=== PATIENT | male | born 1945 | race Asian ===

== ENCOUNTER 2018-08-09 23:31 | Inpatient (IN) | payer OTHER ==
[~2018-08-09] VITALS: Ht 167.6 cm; Wt 83.9 kg
[2018-08-09 23:30] VITALS: BP 166/100
--- NOTE | 2018-08-09 23:30 | NUR ---
PATIENT ARRIVED BY AMBULANCE FOR SOB ON CPAP. PT STATED HE HAS HX- CABGx3, PACEMAKER, BLOOD THINNERS AND DIURETICS. PT PLACED ON BIPAP 12/6 FIO2 100% BS-CRACKLES, COARSE. ABG OBTAINED AND RESULT GIVEN TO DR. KHAN, . AT 2350 DECREASED FIO2 TO 80%
--- NOTE | 2018-08-09 23:31 | NUR ---
PT JERARDO ALS. TAKEN TO BED 10
--- NOTE | 2018-08-09 23:31 | NUR ---
72 y/o biba with c/o SOB for 2-3 hours. C-PAP in place. PHM of CABG, CHF, and DM2. Takes water pills at home. Pt was tachycardic and hypertensive. Skin cold and clammy. Rales to bilateral upper lobes. Urinated at bedside, blood in urine. Per pt has lasted a week. Bedrails up x2 for safety. notified. Will continue to monitor.
--- NOTE | 2018-08-09 23:31 | NUR ---
Respiratory Therapist at bedside for respiratory intervention.
[2018-08-09] MEDS ORDERED: FUROSEMIDE 40 MG/4 ML VIAL IVP ONE (23:35)
[2018-08-09] MEDS ORDERED: NITROGLYCERIN 2% 1 GM PKT TP ONE (23:35)
[2018-08-09 23:36] VITALS: BP 192/126
[2018-08-09] MEDS ORDERED: TAMS0.4C96 PO (23:44)
[2018-08-09] MEDS ORDERED: GLIP5TER PO (23:44)
[2018-08-09] MEDS ORDERED: ASPI-1718 PO (23:44)
[2018-08-09] MEDS ORDERED: CARV3.12 PO (23:44)
[2018-08-09] MEDS ORDERED: AMIO200T5 PO (23:44)
[2018-08-09] MEDS ORDERED: LOSA25TA43 PO (23:44)
[2018-08-09 23:50] LABS: BASOPHILS % (AUTO) 0.3 % (0.0-2.0); EOSINOPHILS # (AUTO) 0.5 K/uL (0-0.4); EOSINOPHILS % (AUTO) 4.3 % (0.0-4.0); HEMATOCRIT 50.7 % (36-52); HEMOGLOBIN 16.8 g/dL (12.0-18.0); LYMPHOCYTES % (AUTO) 37.4 % (20.5-51.1); MEAN CORPUSCULAR HEMOGLOBIN 29 pg (27-31); MEAN CORPUSCULAR HGB CONC 33 g/dL (33-37); MONOCYTES # (AUTO) 1.1 K/uL (0.8-1.0); MONOCYTES % (AUTO) 10.3 % (1.7-9.3); NEUTROPHILS # (AUTO) 5.2 K/uL (1.8-7.7); NEUTROPHILS % (AUTO) 47.7 % (42.2-75.2); PLATELET COUNT (AUTO) 215 K/uL (140-450); RED BLOOD CELL COUNT(AUTO) 5.83 MIL/uL (4.20-6.10); RED CELL DISTRIBUTION WIDTH 14.5 % (11.6-13.7); WHITE BLOOD COUNT (AUTO) 10.8 K/uL (4.8-10.8)
[2018-08-09 23:59] LABS: BILIRUBIN,URINE 1+ (NEGATIVE); BLOOD, URINE 3+ (NEGATIVE); LEUKOCYTE ESTERASE ,URINE 1+ (NEGATIVE); NITRITE, URINE POSITIVE (NEGATIVE); PH,URINE 5.5 (5.0-9.0); UGLUCOSE NEGATIVE (NEGATIVE)
[2018-08-10] VITALS (8 sets, daily range): BP systolic 85–131; BP diastolic 52–90
[2018-08-10 00:05] LABS: ANION GAP 13.4 (8-16); CARBON DIOXIDE 26.9 mmol/L (21-32); CHLORIDE 104 mmol/L (98-107); CREATININE 1.8 mg/dL (0.7-1.3); GLUCOSE 155 mg/dL (74-106); POTASSIUM 3.3 mmol/L (3.5-5.1); SODIUM SERUM 141 mmol/L (136-145); UREA NITROGEN, BLOOD 21 mg/dL (7-18)
[2018-08-10 00:13] LABS: ASPARTATE AMINOTRANSFERASE 69 U/L (15-37); TOTAL BILIRUBIN 0.5 mg/dL (0.0-1.0)
[2018-08-10 00:13] LABS: APPEARANCE,URINE BLOODY (CLEAR); COLOR,URINE BLOODY (YELLOW)
[2018-08-10 00:15] LABS: RBC,URINE TOO NUMEROUS TO COUN /HPF (0-5); WBC,URINE 20-60 /HPF (0-5)
--- NOTE | 2018-08-10 00:21 | NUR ---
Critical lactic acid of 3.0. MD notified.
--- NOTE | 2018-08-10 00:30 | NUR ---
seen at bedside. Urinated, hematuria noted.
--- NOTE | 2018-08-10 00:40 | NUR ---
Blood pressure trending down, currently 134/90. Per Pt " feeling a little bit better". Skin warm to touch. at bedside.
[2018-08-10] MEDS ORDERED: cefTRIAXone 1,000 MG VIAL ONE (00:55)
[2018-08-10] MEDS ORDERED: NACL 0.9% 1,000 ML IV SCH (03:11)
[2018-08-10] MEDS ORDERED: DOCUSATE SODIUM 100 MG GELCAP PO PRN (03:15)
[2018-08-10] MEDS ORDERED: ACETAMINOPHEN 325 MG TAB PO PRN (03:15)
[2018-08-10] MEDS ORDERED: ONDANSETRON 4 MG/2 ML VIAL IM/IVP PRN (03:15)
[2018-08-10] MEDS ORDERED: ALBUTEROL SULFATE/IPRATROPIU 3 ML SOL IH PRN (03:15)
[2018-08-10] MEDS ORDERED: HYDROcodone/APAP 7.5/325 MG 1 TAB PO PRN (03:15)
[2018-08-10] MEDS ORDERED: MORPHINE SULFATE 2 MG/ML SYR IVP PRN (03:15)
--- NOTE | 2018-08-10 03:45 | NUR ---
RT transitioned Pt from C-Pap to simple mask at 6L. Tolerated well, O2 at 97%.
--- NOTE | 2018-08-10 03:47 | NUR ---
DECREASED FIO2 TO 50%, SAO2-98%
[2018-08-10 03:50] LABS: BARBITURATE, URINE NEG. ng/ml (NEG <=200); BENZODIAZEPINE, URINE NEG. ng/mL (NEG <=200); CANNABINOID, URINE NEG. ng/mL (NEG <=50); COCAINE, URINE NEG. ng/mL (NEG <=300); OPIATE, URINE NEG. ng/mL (NEG <=2000); PHENCYCLIDINE SCREEN,URINE NEG. ng/mL (NEG <=25)
[2018-08-10 03:55] LABS: PROTHROMBIN TIME 9.6 secs (10.8-13.4)
--- NOTE | 2018-08-10 03:55 | NUR ---
Patient will be admitted to care of MD Fernie . Admited to ICU. Will go to room 5. Belongings list completed. Report to ROMARIO Murcia. VSS.
--- NOTE | 2018-08-10 03:55 | NUR ---
Pt report given to ROMARIO Murcia. Transfer of care at this time. VSS.
[2018-08-10] MEDS ORDERED: DEXTROSE 50% 50 ML SYR IVP PRN (04:00)
--- NOTE | 2018-08-10 04:00 | NUR ---
PT ARRIVED IN THE UNIT AT 0355 TRANSPORTED VIA [facility]. PT WAS ABLE TO TRANSFER SELF FROM GURNEY TO BED WITH ASSISTANCE, BUT DID NOT AMBULATE. PT AWAKE, ALERT AND ORIENTED. ABLE TO MAKE NEEDS KNOWN. DENIES ANY PAIN AT THIS TIME. AFEBRILE. PT'S ONLY COMPLAINT WAS FEELING COLD. LUNG SOUNDS CLEAR. PT WAS MOVED FROM OXYGEN MASK TO BIPAP. RT AT BEDSIDE. PT DENIES ANY DIFFICULTY BREATHING AT THIS TIME. RESPIRATIONS ARE EVEN AND UNLABORED. S1+S2 HEARD. SR WITH BBB ON MONITOR. PULSES ARE PALPABLE IN ALL EXTREMITIES. ABDOMEN ROUND, SOFT AND NONDISTENDED. BS ACTIVE IN ALL QUADRANTS. PER PT, LAST BM WAS 08/09/18. PT ABLE TO MOVE EXTREMITIES WITH EQUAL STRENGTH BILATERALLY. RECEIVED PT WITH PERIPHERAL IV ACCESS ON RIGHT AC 20G AND LEFT HAND 20G. LINES ARE PATENT, INTACT, AND ASYMPTOMATIC. CALL LIGHT WITHIN REACH AND ALL SAFETY PRECAUTIONS ARE IN PLACE. PT'S DIEGO AT BEDSIDE. WILL CONTINUE TO MONITOR PT.
[2018-08-10] MEDS ORDERED: KCL 20 MEQ/WATER INJ PREMIX 100 ML IV ONE ×2 (04:05→05:09)
--- NOTE | 2018-08-10 04:05 | NUR ---
PATIENT TRANSFERRED TO ICU BED 5 VIA SIMPLE MASK AT 10LPM AND THEN PLACED BACK ON BIPAP / RATE-14 FIO2-50%
[2018-08-10 04:08] LABS: CHOL/HDL RATIO 2.8 (1-4.5); PHOSPHORUS 3.4 mg/dL (2.5-4.9); THYROID STIMULATING HORMONE 9.05 uIU/mL (0.34-3.74)
[2018-08-10] MEDS ORDERED: CLINDAMYCIN 600 MG in DEXTROSE 5% 50 ML IV SCH (05:00)
[2018-08-10] MEDS ORDERED: CLINDAMYCIN 600 MG/4 ML VIAL ONE (05:50)
[2018-08-10 06:02] LABS: ANION GAP 16.5 (8-16); CARBON DIOXIDE 22.2 mmol/L (21-32); CHLORIDE 107 mmol/L (98-107); CREATININE 1.9 mg/dL (0.7-1.3); GLUCOSE 173 mg/dL (74-106); POTASSIUM 3.7 mmol/L (3.5-5.1); SODIUM SERUM 142 mmol/L (136-145); UREA NITROGEN, BLOOD 24 mg/dL (7-18)
[2018-08-10 06:05] LABS: MAGNESIUM 1.6 mg/dL (1.8-2.4); PHOSPHORUS 2.9 mg/dL (2.5-4.9)
--- NOTE | 2018-08-10 06:29 | NUR ---
CALLED DR. QUEEN TO SUGGEST IF POSSIBLE TO ORDER POTASSIUM WITH LIDOCAINE DUE TO PT ONLY HAVING PERIPHERAL IV ACCESS. DR. QUEEN AGREED AND WILL CHANGE ORDER.
[2018-08-10] MEDS ORDERED: POTASSIUM CHLORIDE 40 MEQ, LIDOCAINE MPF 1% - 5 mL VIAL 25 MG in NACL 0.9% 250 ML IV SCH (06:30)
[2018-08-10 06:33] LABS: BASOPHILS % (AUTO) 0.2 % (0.0-2.0); EOSINOPHILS % (AUTO) 0.1 % (0.0-4.0); HEMATOCRIT 49.6 % (36-52); HEMOGLOBIN 16.2 g/dL (12.0-18.0); LYMPHOCYTES % (AUTO) 7.1 % (20.5-51.1); MEAN CORPUSCULAR HEMOGLOBIN 28 pg (27-31); MEAN CORPUSCULAR HGB CONC 33 g/dL (33-37); MEAN CORPUSCULAR VOLUME 86.9 fL (80-94); MONOCYTES % (AUTO) 7.2 % (1.7-9.3); NEUTROPHILS # (AUTO) 11.5 K/uL (1.8-7.7); NEUTROPHILS % (AUTO) 85.4 % (42.2-75.2); PLATELET COUNT (AUTO) 167 K/uL (140-450); RED CELL DISTRIBUTION WIDTH 14.2 % (11.6-13.7); WHITE BLOOD COUNT (AUTO) 13.5 K/uL (4.8-10.8)
[2018-08-10] MEDS ORDERED: methylPREDNISolone SS 125 MG/2 ML VIAL IVP SCH (06:40)
[2018-08-10] MEDS: BLOOD GLUCOSE MONITORING 1 DEV DEV FS SCH ×4 (06:51→20:30)
--- NOTE | 2018-08-10 07:09 | NUR ---
CALLED DR. QUEEN AGAIN TO INFORM HIM REGARDING CURRENT BMP RESULT. POTASSIUM LEVEL NORMALIZED WITHOUT GIVING K-RIDER. REPORTED LOW MAGNESIUM LEVEL.
[2018-08-10] MEDS ORDERED: MAGNESIUM OXIDE 400 MG TAB PO SCH ×2 (07:10→08:35)
[2018-08-10] MEDS: ALBUTEROL SULFATE/IPRATROPIU 3 ML SOL IH SCH ×3 (07:26→19:17)
--- NOTE | 2018-08-10 07:36 | NUR ---
RECEIVED PATIENT ON BIPAP ON DOCUMENTED NIPPV SETTINGS. PATIENT TOLERATING BIPAP WELL. SCHEDULED BREATHING TREATMENT ADMINISTERED. TOLERATED TX WELL, NO ADVERSE SIDE EFFECTS. NO DISTRESS NOTED WILL CONTINUE TO MONITOR.
--- NOTE | 2018-08-10 07:38 | NUR ---
PLACED PATIENT ON 4L NASAL CANNULA. WILL TITRATE TO MAINTAIN SpO2 >92%. NO DISTRESS NOTED WILL CONTINUE TO MONITOR.
--- NOTE | 2018-08-10 07:49 | NUR ---
PT ASSISTED TO BE REPOSITIONED FOR BREAKFAST AND OFF BIPAP BY RT AND ON O2 4L VIA NC. PT SATING WELL AND DENIES ANY PAIN OR DISCOMFORT. INSULIN ADMINISTERED ORDERED. A&O X4. VERBALLY RESPONSIVE. ABLE TO MOVE ALL EXTREMITIES. RIGHT AC AND HAND #20 PATENT AND ASYMPTOTIC. BOWEL SOUNDS ACTIVE. SR ON MONITOR. CAP REFILL WITHIN 3 SEC. LUNG SOUNDS CLEAR. USES URINAL. DR. ENCARNACION AND RESIDENTS CAME TO SEE THE RESIDENT. Addendum: 08/10/18 at 1105 by Charley Waters RN DR. ENCARNACION AND RESIDENTS CAME TO SEE THE PT.
[2018-08-10] MEDS: AMIODARONE 200 MG TAB PO SCH (08:09)
[2018-08-10] MEDS: CARVEDILOL 3.125 MG TAB PO SCH ×2 (08:09→20:32)
[2018-08-10] MEDS: LACTOBACILLUS RHAMNOSUS GG 1 EACH CAP PO SCH (08:09)
[2018-08-10] MEDS: TAMSULOSIN 0.4 MG CAP PO SCH (08:09)
[2018-08-10] MEDS: ASPIRIN 81 MG TAB.CHEW PO SCH (08:10)
[2018-08-10] MEDS: glipiZIDE ER 5 MG TABER PO SCH (08:19)
--- NOTE | 2018-08-10 08:30 | NUR ---
ASSISTED WITH MORNING CARE. TOLERATED WELL.
--- NOTE | 2018-08-10 08:30 | NUR ---
RENAL ULTRA SOUND BEING PERFORMED AT BED SIDE.
--- NOTE | 2018-08-10 08:45 | NUR ---
50% BREAKFAST CONSUMED. PT UNABLE TO FEED HIMSELF AT THIS TIME STATING THAT HE FEELS WEAK. ASSISTED PT WITH FEEDING.
[2018-08-10] MEDS ORDERED: LOSARTAN 25 MG TAB PO SCH (09:00)
--- NOTE | 2018-08-10 09:35 | NUR ---
DR. MAJOR IN TO SEE RESIDENT. ORDER RECEIVED. WILL CARRY OUT.
--- NOTE | 2018-08-10 10:00 | NUR ---
CRITICAL LAB RESULT RECEIVED. LACTIC ACID=3.3. REPORTED TO DR. MAJOR. ORDER RECEIVED AND WILL CARRY OUT.
[2018-08-10] MEDS: NACL 0.9% 1,000 ML IV SCH ×2 (10:15→21:43)
--- NOTE | 2018-08-10 10:25 | NUR ---
DR. SHAVER IN TO SEE PT.
--- NOTE | 2018-08-10 11:03 | NUR ---
ASSISTED WITH REPOSITIONING FOR COMFORT. DENIES PAIN OR DISCOMFORT. VSS. CALL LIGHT IN REACH. BED KEPT TO THE LOWEST. ALL NEEDS ARE ANTICIPATED. WILL CONTINUE TO MONITOR.
[2018-08-10] MEDS: INSULIN LISPRO SLIDING SCALE 100 UNITS/ML VIAL SUBQ PRN ×3 (11:32→20:32)
[2018-08-10] MEDS: CLINDAMYCIN PHOS 600MG/D5W PM 50 ML IV SCH ×2 (12:46→20:31)
[2018-08-10] MEDS: methylPREDNISolone SS 125 MG/2 ML VIAL IVP SCH ×2 (12:47→20:31)
[2018-08-10] MEDS ORDERED: CLINDAMYCIN PHOS 600MG/D5W PM 50 ML IV SCH (13:00)
--- NOTE | 2018-08-10 13:00 | NUR ---
50% LUNCH CONSUMED. LIMITED ASSISTANCE PROVIDED.
--- NOTE | 2018-08-10 14:10 | NUR ---
SCHEDULED BREATHING TREATMENT ADMINISTERED. TOLERATED TX WELL, NO ADVERSE SIDE EFFECTS. WILL CONTINUE TO MONITOR.
--- NOTE | 2018-08-10 14:45 | NUR ---
Critical lab result Lactic acid=4.[address] Gooden. Doctor will see the pt.
[2018-08-10] MEDS ORDERED: NACL 0.9% 500 ML IV ONE (14:50)
--- NOTE | 2018-08-10 14:55 | NUR ---
Dr. Gooden in to see pt. Ordered NS bolus 500ml. Noted and carried out.
[2018-08-10 15:21] LABS: BASOPHILS % (AUTO) 0.1 % (0.0-2.0); HEMOGLOBIN 14.2 g/dL (12.0-18.0); LYMPHOCYTES # (AUTO) 0.6 K/uL (2.0-11.5); LYMPHOCYTES % (AUTO) 6.6 % (20.5-51.1); MEAN CORPUSCULAR HEMOGLOBIN 29 pg (27-31); MEAN CORPUSCULAR HGB CONC 33 g/dL (33-37); MEAN CORPUSCULAR VOLUME 86.3 fL (80-94); MONOCYTES # (AUTO) 0.1 K/uL (0.8-1.0); MONOCYTES % (AUTO) 0.8 % (1.7-9.3); NEUTROPHILS # (AUTO) 8.6 K/uL (1.8-7.7); NEUTROPHILS % (AUTO) 92.5 % (42.2-75.2); PLATELET COUNT (AUTO) 150 K/uL (140-450); RED BLOOD CELL COUNT(AUTO) 4.99 MIL/uL (4.20-6.10); WHITE BLOOD COUNT (AUTO) 9.3 K/uL (4.8-10.8)
[2018-08-10 15:34] LABS: ANION GAP 16.8 (8-16); CARBON DIOXIDE 19.8 mmol/L (21-32); CHLORIDE 106 mmol/L (98-107); CREATININE 2.2 mg/dL (0.7-1.3); GLUCOSE 223 mg/dL (74-106); POTASSIUM 3.6 mmol/L (3.5-5.1); SODIUM SERUM 139 mmol/L (136-145); UREA NITROGEN, BLOOD 26 mg/dL (7-18)
--- NOTE | 2018-08-10 15:35 | NUR ---
NS BOLUS COMPLETED. BP=85/55. DR. MAJOR MADE AWARE. PT IS ALERT X 4 AND NO CHANGE IS MENTATION NOTED. PT DENIES ANY PAIN OR DISCOMFORT. ASSISTED WITH REPOSITION FOR COMFORT. WILL CONTINUE TO MONITOR.
[2018-08-10] MEDS ORDERED: PROBIOTIC SCREEN 1 EA MISC MC PRN (16:15)
--- NOTE | 2018-08-10 16:45 | NUR ---
ASSISTED WITH BED BATH. TOLERATED WELL. DENIES ANY DISCOMFORT. VSS. WILL CONTINUE TO MONITOR.
--- NOTE | 2018-08-10 18:02 | NUR ---
PT ATE 70% OF DINNER. SET UP ASSISTANCE PROVIDED.
--- NOTE | 2018-08-10 19:10 | NUR ---
DR. Sue REDDY AT BEDSIDE. UPDATED HIM REGARDING PT'S CONDITION. WILL FOLLOW-UP WITH ANY NEW ORDERS.
--- NOTE | 2018-08-10 19:22 | NUR ---
REPORT GIVEN TO NOC NURSE. PT VSS AND DENIES PAIN OR DISCOMFORT. ALL PRECAUTIONS ARE IN PLACE.
--- NOTE | 2018-08-10 19:30 | NUR ---
RECEIVED REPORT FROM MORNING RN, THERESA, FOR CONTINUITY OF CARE. VS STABLE AT THIS TIME. AFEBRILE. PT ABLE TO MAKE NEEDS KNOWN AND FOLLOW COMMANDS. PT DENIES ANY PAIN OR DISCOMFORT AT THIS TIME. PT MAKING CONVERSATION WITH STAFF. SKIN IS WARM TO TOUCH. LUNG SOUNDS CLEAR. PT ON OXYGEN AT 4L/MIN VIA NC. NO SOB NOTED. RESPIRATIONS ARE EVEN AND UNLABORED. OXYGEN SATURATION WNL. S1+S2 HEARD. SR ON MONITOR. PULSES ARE PALPABLE IN ALL EXTREMITIES. NO JVD NOTED. ABDOMEN ROUND, SOFT AND NONDISTENDED. BS ACTIVE IN ALL QUADRANTS. PT ABLE TO REPOSITION SELF IN BED. USES URINAL. NS RATE CHANGED TO 20ML/HR. PT HAS PERIPHERAL IV ACCESS ON RIGHT AC 20G AND LEFT HAND 20G. ALL IV ACCESS STILL HAS GOOD BLOOD RETURN. ALL SAFETY PRECAUTIONS ARE IN PLACE. WILL CONTINUE TO MONITOR PT.
--- NOTE | 2018-08-10 22:45 | NUR ---
VS STABLE. PT REMAINS ON OXYGEN AT 4L/MIN VIA NC. DENIES ANY SOB OR DIFFICULTY BREATHING. RESPIRATIONS ARE EVEN AND UNLABORED. BED AT LOW POSSIBLE POSITION. SAFETY PRECAUTIONS IN PLACE. CALL LIGHT WITHIN REACH
[2018-08-11] VITALS: BP 95/50
--- NOTE | 2018-08-11 00:21 | NUR ---
NO CHANGE IN PT'S CONDITION AT THIS TIME. VS STABLE. PT EYES ARE CLOSED. RESPIRATIONS ARE EVEN AND UNLABORED. NO SIGNS OF SOB NOTED. SR WITH FIRST DEGREE AV BLOCK ON MONITOR.
[2018-08-11] MEDS ORDERED: NACL 0.9% 250 ML IV SCH (03:11)
--- NOTE | 2018-08-11 03:15 | NUR ---
RESPIRATIONS ARE EVEN AND UNLABORED. PT DENIES ANY DISCOMFORT OR PAIN AT THIS TIME. VS STABLE. HOB ELEVATED. ALL SAFETY PRECAUTIONS ARE IN PLACE. WILL CONTINUE TO MONITOR PT.
[2018-08-11 04:00] VITALS: BP 110/53
--- NOTE | 2018-08-11 05:20 | NUR ---
OFFERED PM CARE TO PT BUT REFUSED AT THIS TIME. HE CURRENTLY STATES THAT HE FEELS COLD AND WOULD PREFER IT AFTER BREAKFAST. PADS WERE CHANGED INSTEAD. PT WANTED TO REST SOME MORE
[2018-08-11] MEDS: methylPREDNISolone SS 125 MG/2 ML VIAL IVP SCH (05:27)
[2018-08-11] MEDS: CLINDAMYCIN PHOS 600MG/D5W PM 50 ML IV SCH ×3 (05:27→21:21)
[2018-08-11 05:58] LABS: ANION GAP 15.1 (8-16); CARBON DIOXIDE 21.6 mmol/L (21-32); CHLORIDE 106 mmol/L (98-107); CREATININE 2.1 mg/dL (0.7-1.3); GLUCOSE 185 mg/dL (74-106); POTASSIUM 3.7 mmol/L (3.5-5.1); SODIUM SERUM 139 mmol/L (136-145); UREA NITROGEN, BLOOD 35 mg/dL (7-18)
[2018-08-11 06:01] LABS: MAGNESIUM 1.8 mg/dL (1.8-2.4); PHOSPHORUS 3.1 mg/dL (2.5-4.9)
--- NOTE | 2018-08-11 06:19 | NUR ---
DR. MENSAH AT BEDSIDE TO SEE PT. UPDATED HER REGARDING THE PT'S STATUS OVER NIGHT. WILL FOLLOW-UP WITH ANY NEW ORDERS.
[2018-08-11] MEDS ORDERED: PNEUMOCOCCAL VACCINE 23 MCG/0.5 ML VIAL IMVAC PRN (06:55)
[2018-08-11] MEDS ORDERED: INFLUENZA VIRUS VACCINE QUAD 0.5 ML SYR IMVAC PRN (06:55)
[2018-08-11] MEDS: ALBUTEROL SULFATE/IPRATROPIU 3 ML SOL IH SCH ×3 (07:09→19:00)
--- NOTE | 2018-08-11 07:15 | NUR ---
RECEIVED BEDSIDE REPORT FROM INFORMATION SERVICES VICE PRESIDENT RNKEHINDE FOR CONTINUITY OF CARE. PATIENT IS AAOX4, ABLE TO MAKE NEEDS KNOWN AND FOLLOWS COMMANDS. PATIENT SKIN IS INTACT, WARM AND DRY. HE IS ON NASAL OXIMIZER AT 4LPM, BREATHING EVEN AND UNLABORED. PATIENT IS SR WITH BBB ON MONITOR, DENIES PAIN OR SOB. HOB IS 30 DEGREES, SAFETY PRECAUTIONS AND ALARMS ASSESSED AND ENFORCED. NO SIGNS OF DISTRESS NOTED. WILL CONTINUE TO MONITOR.
--- NOTE | 2018-08-11 07:15 | NUR ---
RECEIVED PT ON 4L OXYMIZER SPO2 96%. WILL TITRATE TO 3L POST BREATHING TX ADMINISTRATION. BIPAP IS BEDSIDE NOT INDICATED AT THIS TIME. PT IS NOT SOB AND NOT IN RESPIRATORY DISTRESS. WILL CONTINUE TO MONITOR.
[2018-08-11] MEDS: BLOOD GLUCOSE MONITORING 1 DEV DEV FS SCH ×4 (07:35→21:05)
[2018-08-11] MEDS: INSULIN LISPRO SLIDING SCALE 100 UNITS/ML VIAL SUBQ PRN ×4 (07:38→20:32)
[2018-08-11 08:00] VITALS: BP 114/66
--- NOTE | 2018-08-11 08:32 | NUR ---
PATIENT HAS BEEN SCREENED AND CATEGORIZED HIGH NUTRITION RISK. PATIENT WILL BE SEEN WITHIN 1-2 DAYS OF ADMISSION. 08/11/[address]
[2018-08-11] MEDS: CARVEDILOL 3.125 MG TAB PO SCH ×2 (09:00→21:22)
[2018-08-11] MEDS: AMIODARONE 200 MG TAB PO SCH (09:00)
[2018-08-11] MEDS: LACTOBACILLUS RHAMNOSUS GG 1 EACH CAP PO SCH (09:00)
[2018-08-11] MEDS: TAMSULOSIN 0.4 MG CAP PO SCH (09:00)
[2018-08-11] MEDS: glipiZIDE ER 5 MG TABER PO SCH (09:00)
[2018-08-11] MEDS: ASPIRIN 81 MG TAB.CHEW PO SCH (09:00)
--- NOTE | 2018-08-11 09:00 | NUR ---
DR. VALENTINE AND RESIDENT PHYSICIANS AT BEDSIDE TO ROUND ON PATIENT. WILL FOLLOW UP ON ANY ORDERS.
--- NOTE | 2018-08-11 11:10 | NUR ---
HALAL BUTCHER AT BEDSIDE FOR ECHOCARDIOGRAM
--- NOTE | 2018-08-11 11:33 | NUR ---
ECHOCARDIOGRAM DONE, PATIENT TOLERATED WELL, NO SIGNS OF DISTRESS AT THIS TIME.
[2018-08-11 12:00] VITALS: BP 117/62
[2018-08-11] MEDS ORDERED: LOSARTAN 25 MG TAB PO SCH (13:00)
[2018-08-11] MEDS: methylPREDNISolone SS 40 MG/ML VIAL IVP SCH ×2 (13:06→21:21)
[2018-08-11 13:40] LABS: HEMATOCRIT 40.3 % (36-52); HEMOGLOBIN 13.1 g/dL (12.0-18.0); MEAN CORPUSCULAR HEMOGLOBIN 28 pg (27-31); MEAN CORPUSCULAR HGB CONC 33 g/dL (33-37); MEAN CORPUSCULAR VOLUME 87.1 fL (80-94); PLATELET COUNT (AUTO) 165 K/uL (140-450); RED BLOOD CELL COUNT(AUTO) 4.63 MIL/uL (4.20-6.10); RED CELL DISTRIBUTION WIDTH 14.2 % (11.6-13.7); WHITE BLOOD COUNT (AUTO) 16.9 K/uL (4.8-10.8)
[2018-08-11 13:51] LABS: LYMPHOCYTES % (MANUAL) 4 % (20-46); MONOCYTES % (MANUAL) 2 % (5-12)
--- NOTE | 2018-08-11 14:50 | NUR ---
TRANSFERRED PATIENT TO TELE VIA WHEELCHAIR. PATIENT IS HOOKED TO CEMENT BASED MATERIALS PUMP TENDER, ON NASAL OXIMIZER 4LPM. VITALS STABLE, DENIES ANY PAIN OR SOB. ENDORSED CONTINUITY OF CARE TO MST RNTIARRA. NO SIGNS OF DISTRESS AT THIS TIME
--- NOTE | 2018-08-11 14:57 | NUR ---
PT ADMITTED TO TELEMETRY UNIT. PT AWAKE A/O ABLE TO COMMUNICATE NEEDS, DENIES NV, DENIES PAIN. PT ON 02 VIA OXIMIZER, DENIES SOB. SKIN INTACT, ORIENTED TO UNIT. NO S/S OF ACUTE DISTRESS NOTED AT THIS TIME, CALL LIGHT AND PERSONAL ITEMS WITHIN REACH, SAFETY MEASURES IN PLACE. WILL CONTINUE TO MONITOR
[2018-08-11 15:30] VITALS: BP 114/54
--- NOTE | 2018-08-11 15:38 | NUR ---
08/11/18 RD INITIAL ASSESSMENT COMPLETED PLEASE REFER TO NUTRITION ASSESSMENT UNDER CARE ACTIVITY FOR ESTIMATED NUTRITIONAL NEEDS. 1. CONTINUE CCHO 60 GM AND CARDIAC MECH SOFT DIET TOLERATED 2. RD PROVIDED EDUCATION ON CONSISTENT CARBOHYDRATE DIET 3. RD TO FOLLOW-UP 3-5 DAYS, MODERATE RISK HESHAM MIRZA, RD
--- NOTE | 2018-08-11 19:28 | NUR ---
PT REMAINS A/O, ABLE TO COMMUNICATE NEEDS. PT ON 02 VIA OXIMIZER, DENIES SOB OR PAIN. NO S/S OF ACUTE DISTRESS NOTED AT THIS TIME, CALL LIGHT AND PERSONAL ITEMS WITHIN REACH, SAFETY MEASURES IN PLACE. REPORT ENDORSED TO ONCOMING NURSE JHONATAN.
--- NOTE | 2018-08-11 19:30 | NUR ---
RECEIVED PT FROM DAY SHIFT NURSE PT IS AAOX4 , ON BED REST ON TELEMETRY SR INVERTED T , IV ON RT AC INFUSING WELL AND HL ON LEFT WRIST ON OXIMIZER 4 LTS, DENIES ANY PAIN INITIAL ASSESSMENT DONE
[2018-08-11] MEDS: NACL 0.9% 1,000 ML IV SCH (19:31)
[2018-08-11 20:00] VITALS: BP 127/73
--- NOTE | 2018-08-11 21:00 | NUR ---
RESP THERAPY IS HERE GIVEN BREATHING TX
[2018-08-12] VITALS: BP 118/67
--- NOTE | 2018-08-12 | NUR ---
PT HAS BEEN MONITORING CLOSE, FREQ ROUND NOT SOB NOTED ON TELEMETRY ST , REPOSITIONED Q2H IV ON RT AC INFUSING WELL
--- NOTE | 2018-08-12 03:00 | NUR ---
PT SLEEPING WELL NOT SOB NOTED ON TELEMETRY SR, PTONCLOSE MONNITORING AND REPOSITIONED Q2H
[2018-08-12 04:00] VITALS: BP 115/54
[2018-08-12] MEDS: CLINDAMYCIN PHOS 600MG/D5W PM 50 ML IV SCH ×3 (04:55→21:50)
[2018-08-12] MEDS: methylPREDNISolone SS 40 MG/ML VIAL IVP SCH (04:56)
--- NOTE | 2018-08-12 05:00 | NUR ---
SPONGE BATH GIVEN LINEN CHANGED NOT DISTRESS NOTED AT THIS TIME
[2018-08-12] MEDS: ALBUTEROL SULFATE/IPRATROPIU 3 ML SOL IH SCH ×3 (06:55→18:45)
--- NOTE | 2018-08-12 07:05 | NUR ---
BLOOD SUGAR TEST 138 NOT COVERAGE PT WILL BE ENDORSED TO DAY SHIFT NURSE FOR CONTINUITY OF CARE .
[2018-08-12 07:19] LABS: HEMATOCRIT 38.7 % (36-52); HEMOGLOBIN 12.8 g/dL (12.0-18.0); LYMPHOCYTES # (AUTO) 0.5 K/uL (2.0-11.5); LYMPHOCYTES % (AUTO) 3.5 % (20.5-51.1); MEAN CORPUSCULAR HEMOGLOBIN 29 pg (27-31); MEAN CORPUSCULAR HGB CONC 33 g/dL (33-37); MEAN CORPUSCULAR VOLUME 86.4 fL (80-94); MONOCYTES # (AUTO) 0.3 K/uL (0.8-1.0); MONOCYTES % (AUTO) 2.3 % (1.7-9.3); NEUTROPHILS # (AUTO) 14.1 K/uL (1.8-7.7); NEUTROPHILS % (AUTO) 94.2 % (42.2-75.2); PLATELET COUNT (AUTO) 173 K/uL (140-450); RED BLOOD CELL COUNT(AUTO) 4.48 MIL/uL (4.20-6.10); WHITE BLOOD COUNT (AUTO) 14.9 K/uL (4.8-10.8)
--- NOTE | 2018-08-12 07:20 | NUR ---
REPORT RECIVED FROM BILL CHECKER, PT SLEEPING QUIETLY, AROUSES EASILY BY VOICE, RESP EVEN UNLABORED ON 5L OXYMIZER, SKIN WARM DRY COLOR WNL, POC REVIEWED, PT DENIES ANY IMMEDIATE NEEDS, ALL SAFETY MEASURES IN PLACE, WILL CONTINUE TO MONITOR.
[2018-08-12] MEDS: BLOOD GLUCOSE MONITORING 1 DEV DEV FS SCH ×4 (07:30→21:50)
[2018-08-12 08:00] VITALS: BP 131/71
[2018-08-12 08:29] LABS: SODIUM SERUM 142 mmol/L (136-145)
[2018-08-12 08:31] LABS: ANION GAP 15.5 (8-16); CARBON DIOXIDE 22.8 mmol/L (21-32); CHLORIDE 108 mmol/L (98-107); CREATININE 1.7 mg/dL (0.7-1.3); GLUCOSE 143 mg/dL (74-106); POTASSIUM 4.3 mmol/L (3.5-5.1); UREA NITROGEN, BLOOD 38 mg/dL (7-18)
[2018-08-12] MEDS: ASPIRIN 81 MG TAB.CHEW PO SCH (08:37)
[2018-08-12] MEDS: LACTOBACILLUS RHAMNOSUS GG 1 EACH CAP PO SCH (08:38)
[2018-08-12] MEDS: TAMSULOSIN 0.4 MG CAP PO SCH (08:38)
[2018-08-12] MEDS: AMIODARONE 200 MG TAB PO SCH (08:39)
[2018-08-12] MEDS: CARVEDILOL 3.125 MG TAB PO SCH ×2 (08:40→21:51)
[2018-08-12] MEDS: LOSARTAN 25 MG TAB PO SCH (08:40)
--- NOTE | 2018-08-12 08:40 | NUR ---
PT TAKEN TO CT ABD
--- NOTE | 2018-08-12 09:05 | NUR ---
UP OUT OF BED WITH PHYSICAL THERAPY
--- NOTE | 2018-08-12 09:20 | NUR ---
RECEIVED ORDER FOR SNF FOR IV ANTIBIOTICS AND BREATHING TREATMENT. I CALLED [facility] AND SPOKE WITH KANG AND SHE SAID TO FAX THE ORDER AND CLINICALS AND THEY WILL LOOK FOR A SNF. THE CM WILL BE GERALD, X [phone] FAXED TO [phone]
[2018-08-12] MEDS: glipiZIDE ER 5 MG TABER PO SCH (09:24)
[2018-08-12 12:00] VITALS: BP 125/67
[2018-08-12] MEDS: guaiFENesin DM 200/20 MG-10 ML 10 ML UDC PO SCH ×2 (12:31→17:24)
[2018-08-12] MEDS: INSULIN LISPRO SLIDING SCALE 100 UNITS/ML VIAL SUBQ PRN ×2 (12:43→17:29)
--- NOTE | 2018-08-12 12:43 | NUR ---
2 UNITS INSULIN GIVEN FOR BLOOD SUGAR 170, PT MERISSA WELL.
[2018-08-12] MEDS ORDERED: hydrALAZINE 20 MG/ML VIAL IVP SCH (14:00)
--- NOTE | 2018-08-12 14:20 | NUR ---
PT RESTING QUIETLY IN NAD, RESP EVEN UNLABORED, OXIMIZER 3L, PT DENIES ANY PAIN OR ANY NEEDS AT THIS TIME, WILL CONTINUE TO MONIOTOR.
[2018-08-12] MEDS: NACL 0.9% 1,000 ML IV SCH ×2 (15:01→21:56)
[2018-08-12 16:00] VITALS: BP 128/70
--- NOTE | 2018-08-12 16:08 | NUR ---
AT BEDSIDE, TALKING AND SMILING IN NAD, RESP EVEN UNLABORED, NO IMMEDIATE NEEDS AT THIS TIME.
--- NOTE | 2018-08-12 17:30 | NUR ---
2U INSULIN GIVEN FOR 175 BLOOD SUGAR, PT MERISSA WELL.
--- NOTE | 2018-08-12 19:25 | NUR ---
REPORT GIVEN TO STAFF CYTOTECHNOLOGIST NURSE, PT IN STABLE CONDITION.
[2018-08-12 20:00] VITALS: BP 126/59
[2018-08-12] MEDS ORDERED: guaiFENesin 600 MG TABER PO SCH (21:00)
--- NOTE | 2018-08-12 21:30 | NUR ---
BLOOD SUGAR TEST 117 NOT COVERAGE PT ON TELEMETRYSR EATING WELLL HIS HS SNACK
[2018-08-13] VITALS: BP 140/71
--- NOTE | 2018-08-13 | NUR ---
PT VOIDING WELL CLEAR COLOR URINE ON TELMETRY SR GETTING SLEEP, NOT DISTRESS NOTED
[2018-08-13] MEDS: guaiFENesin DM 200/20 MG-10 ML 10 ML UDC PO SCH ×4 (00:39→18:00)
--- NOTE | 2018-08-13 03:00 | NUR ---
SPONGE BATHGIVEN LINEN CHANGED NOT DISTESS NOTED ON TELMETRY SR VOIDING WELL CLEAR COLOR URINE
[2018-08-13 04:00] VITALS: BP 133/58
[2018-08-13] MEDS: CLINDAMYCIN PHOS 600MG/D5W PM 50 ML IV SCH ×3 (05:26→20:29)
--- NOTE | 2018-08-13 05:40 | NUR ---
BLOOD TEST TAKEN BS 45 PT ASYMPTOMATIC SWEET JUICE GIVEN BS WILL BE MONITORING
[2018-08-13] MEDS: ALBUTEROL SULFATE/IPRATROPIU 3 ML SOL IH SCH ×3 (06:53→18:48)
--- NOTE | 2018-08-13 07:00 | NUR ---
MONITORING BLOOD SUGAR 85 PT IS ENDORSED TO DAY SHIFT NURSE FOR CONTINUITY OF CARE
[2018-08-13] MEDS: BLOOD GLUCOSE MONITORING 1 DEV DEV FS SCH ×4 (07:33→20:50)
[2018-08-13 08:00] VITALS: BP 132/78
[2018-08-13] MEDS: LOSARTAN 25 MG TAB PO SCH (08:20)
[2018-08-13] MEDS: CARVEDILOL 3.125 MG TAB PO SCH ×2 (08:20→20:30)
[2018-08-13] MEDS: AMIODARONE 200 MG TAB PO SCH (08:21)
[2018-08-13] MEDS: LACTOBACILLUS RHAMNOSUS GG 1 EACH CAP PO SCH (08:21)
[2018-08-13] MEDS: TAMSULOSIN 0.4 MG CAP PO SCH (08:21)
--- NOTE | 2018-08-13 08:28 | NUR ---
AM MEDS GIVEN, PT TOOK PILLS WELL, PT SPEAKING CLEARLY IN FULL SENTENCES, RESP EVEN UNLABORED
--- NOTE | 2018-08-13 08:39 | NUR ---
0835 RECEIVED A CALL FROM GERALD ORELLANA AT [facility] AND SHE STATED THAT SHE HAS SPOKEN WITH [facility] AND THEY ARE WILLING TO ACCEPT THE PATIENT FOR ADMISSION. PER GERALD IF PT/FAMILY ARE IN AGREEMENT SHE WILL CALL [facility] WITH THE AUTHORIZATION. REQUESTS CALL BACK FROM REYNA CONFIRMING PT/FAMILY DECISION.
--- NOTE | 2018-08-13 11:45 | NUR ---
BLOOD SUGAR 60, PT STARTED EATING LUNCH IMMEDIATELY, PT DENIES FEEDING ANY DIFFERENT, DENIES PAIN OR LIGHT HEADED NESS, WILL CONTINUE TO MONITOR.
[2018-08-13 12:00] VITALS: BP 121/70
[2018-08-13] MEDS ORDERED: LEVOFLOXACIN 500 MG/D5W PREMIX 100 ML IV SCH (13:00)
--- NOTE | 2018-08-13 14:25 | NUR ---
Ana Maria ORELLANA from [facility] ext [phone], informed me that the patient can also go to [facility] in [place] .
--- NOTE | 2018-08-13 14:29 | NUR ---
Spoke to patient and Chelsea about their choices either to go to [facility] or [facility]. The patient and chose [place].
--- NOTE | 2018-08-13 14:34 | NUR ---
Spoke with REYNA Rodgers from [facility] and informed her that the patient and his Chelsea has agreed for pt to go to [place] for IV antibiotics and plan of discharge is tomorrow.
--- NOTE | 2018-08-13 14:38 | NUR ---
REPEAT BLOOD SUGAR 101. DR FUCHS AWARE.
--- NOTE | 2018-08-13 14:42 | NUR ---
Per Ana Maria CM use [facility] for transportation and no AUTH needed. Just informed [facility] patient has [facility].
[2018-08-13] MEDS ORDERED: BISACODYL 10 MG SUPP RC SCH (15:00)
[2018-08-13] MEDS ORDERED: DOCUSATE SODIUM 100 MG GELCAP PO SCH (15:00)
[2018-08-13 15:14] LABS: BASOPHILS % (AUTO) 0.1 % (0.0-2.0); EOSINOPHILS % (AUTO) 0.1 % (0.0-4.0); HEMATOCRIT 41.4 % (36-52); HEMOGLOBIN 13.7 g/dL (12.0-18.0); LYMPHOCYTES # (AUTO) 1.1 K/uL (2.0-11.5); LYMPHOCYTES % (AUTO) 10.8 % (20.5-51.1); MEAN CORPUSCULAR HEMOGLOBIN 29 pg (27-31); MEAN CORPUSCULAR HGB CONC 33 g/dL (33-37); MEAN CORPUSCULAR VOLUME 86.8 fL (80-94); MONOCYTES % (AUTO) 9.6 % (1.7-9.3); NEUTROPHILS # (AUTO) 8.3 K/uL (1.8-7.7); NEUTROPHILS % (AUTO) 79.4 % (42.2-75.2); PLATELET COUNT (AUTO) 171 K/uL (140-450); RED BLOOD CELL COUNT(AUTO) 4.78 MIL/uL (4.20-6.10); RED CELL DISTRIBUTION WIDTH 14.1 % (11.6-13.7); WHITE BLOOD COUNT (AUTO) 10.4 K/uL (4.8-10.8)
[2018-08-13 15:29] LABS: ANION GAP 13.1 (8-16); CARBON DIOXIDE 23.7 mmol/L (21-32); CHLORIDE 107 mmol/L (98-107); CREATININE 1.5 mg/dL (0.7-1.3); GLUCOSE 109 mg/dL (74-106); POTASSIUM 3.8 mmol/L (3.5-5.1); SODIUM SERUM 140 mmol/L (136-145); UREA NITROGEN, BLOOD 33 mg/dL (7-18)
[2018-08-13 16:00] VITALS: BP 122/76
--- NOTE | 2018-08-13 16:34 | NUR ---
RECTAL SUPPOSITORY AND COLACE GIVEN PER ORDER, PT MERISSA WELL, BLOOD SUGAR 85, NO INSULIN NEEDED PER SLIDING SCALE.
--- NOTE | 2018-08-13 17:36 | NUR ---
PT ASSISTED TO BATHROOM, WALKS WITH SLOW STEADY GAIT.
--- NOTE | 2018-08-13 18:10 | NUR ---
PT WALKING AROUND THE HALLWAY WITH WALKER WITH STAFF WITH STEADY GAIT.
--- NOTE | 2018-08-13 19:25 | NUR ---
REPORT GIVEN TO RN TELEPHONIC NURSE, PT IN STABLE CONDITION.
--- NOTE | 2018-08-13 19:26 | NUR ---
RECEIVED PT IN STABLE CONDITION FROM AM NURSE. AWAKE,ALERT AND ORIENTED X4. ON TELE MONITOR . WITH NO DISCOMFORT NOR SOB NOTED., ON ROOM AIR. NO C/O ANY PAIN. HAS IV ACCESS ON THE RT AC G#20 AND LT HAND #22 , INFILTRATED. SO DC'D. PLAN OF CARE DISCUSSED AND VERBALIZED UNDERSTANDING. BED ON LOWEST POSITION. SIDE RAILS UP X2, CALL LIGHT PLACED WITHIN EASY REACH. WILL CONTINUE TO MONITOR.
[2018-08-13 20:00] VITALS: BP 161/85
--- NOTE | 2018-08-13 20:30 | NUR ---
ASSISTED UP TO THE BATHROOM. WITH VERY SCANTY PASTY BM.
[2018-08-13] MEDS ORDERED: MEROPENEM 500 MG in NACL 0.9% 50 ML IV SCH (21:00)
--- NOTE | 2018-08-13 21:00 | NUR ---
ASKED DR. QUEEN ABOUT THE MERREM IV. HE SAID NOT TO START .
[2018-08-13] MEDS: NACL 0.9% 1,000 ML IV SCH (22:01)
--- NOTE | 2018-08-14 00:01 | NUR ---
PT WANTS HIS BS CHECK . RESULT 88. ENCOURAGED PT TO FINISH THE APPLE JUICE FOR BS TEND TO GO DOWN IN AM. PT VERY HARD TO CONVINCE . HE SAID BS MIGHT GO UP . WILL CONTINUE TO MONITOR.
[2018-08-14] MEDS: guaiFENesin DM 200/20 MG-10 ML 10 ML UDC PO SCH ×3 (00:02→12:08)
[2018-08-14 00:03] VITALS: BP 188/94
--- NOTE | 2018-08-14 00:05 | NUR ---
BP CHECKED 188/94.HR-76. CALLED DR. QUEEN ,RESIDENT . MADE AWARE. WILL ORDER MEDS FOR HIGH BP.
[2018-08-14] MEDS: NACL 0.9% 1,000 ML IV SCH ×2 (00:12→08:59)
[2018-08-14] MEDS ORDERED: hydrALAZINE 20 MG/ML VIAL IVP SCH (00:30)
--- NOTE | 2018-08-14 01:20 | NUR ---
BP AFTER THE HYDRALAZINE 10 MG IVP 142/65,HR-79. PT IS COMFORTABLE AT THIS TIME.
--- NOTE | 2018-08-14 02:30 | NUR ---
MADE ROUNDS. PT ASLEEP. NO S/S OF ANY DISCOMFORT NOTED.
[2018-08-14 04:05] VITALS: BP 145/75
--- NOTE | 2018-08-14 04:37 | NUR ---
PT WANTS BLOOD SUGAR CHECK. RESULT 87.
[2018-08-14] MEDS: CLINDAMYCIN PHOS 600MG/D5W PM 50 ML IV SCH (04:39)
[2018-08-14] MEDS: BLOOD GLUCOSE MONITORING 1 DEV DEV FS SCH ×2 (06:24→12:00)
--- NOTE | 2018-08-14 06:24 | NUR ---
BLOOD SUGAR THIS AM RESULT 127.
[2018-08-14 06:42] LABS: EOSINOPHILS # (AUTO) 0.1 K/uL (0-0.4); EOSINOPHILS % (AUTO) 1.6 % (0.0-4.0); HEMOGLOBIN 14.5 g/dL (12.0-18.0); LYMPHOCYTES # (AUTO) 1.2 K/uL (2.0-11.5); LYMPHOCYTES % (AUTO) 13.4 % (20.5-51.1); MEAN CORPUSCULAR HEMOGLOBIN 29 pg (27-31); MEAN CORPUSCULAR HGB CONC 33 g/dL (33-37); MEAN CORPUSCULAR VOLUME 86.6 fL (80-94); MONOCYTES # (AUTO) 0.9 K/uL (0.8-1.0); MONOCYTES % (AUTO) 10.3 % (1.7-9.3); NEUTROPHILS # (AUTO) 6.6 K/uL (1.8-7.7); NEUTROPHILS % (AUTO) 74.7 % (42.2-75.2); PLATELET COUNT (AUTO) 178 K/uL (140-450); RED BLOOD CELL COUNT(AUTO) 5.09 MIL/uL (4.20-6.10); RED CELL DISTRIBUTION WIDTH 14.1 % (11.6-13.7); WHITE BLOOD COUNT (AUTO) 8.8 K/uL (4.8-10.8)
[2018-08-14 07:19] LABS: CARBON DIOXIDE 26.5 mmol/L (21-32); CHLORIDE 107 mmol/L (98-107); CREATININE 1.6 mg/dL (0.7-1.3); GLUCOSE 92 mg/dL (74-106); POTASSIUM 4.5 mmol/L (3.5-5.1); SODIUM SERUM 143 mmol/L (136-145); UREA NITROGEN, BLOOD 30 mg/dL (7-18)
--- NOTE | 2018-08-14 07:25 | NUR ---
ENDORSED PT IN STABLE CONDITION TO AM NURSE.
--- NOTE | 2018-08-14 07:26 | NUR ---
RECEIVED REPORT FROM CONTROL OPERATOR NURSE. PATIENT LYING DOWN IN BED COMFORTABLY. NO DISTRESS NOTED. DENIES ANY PAIN. AAOX4, CALM, COOPERATIVE, SKIN COLOR APPROPRIATE TO ETHNICITY, WARM TO TOUCH. SKIN COLOR APPROPRIATE TO ETHNICITY, WARM TO TOUCH. SKIN INTACT. RESPIRATIONS EVEN, UNLABORED, ON ROOM AIR. LUNGS CTA ON ALL LOBES. IV SITE INTACT, PATENT, AND INFUSING IVF PER MD ORDERS. ABDOMEN SOFT. REVIEWED PLAN OF CARE WITH PATIENT. SAFETY MEASURES IN PLACE, CALL LIGHT WITHIN REACH. WILL CONTINUE TO MONITOR.
[2018-08-14] MEDS: ALBUTEROL SULFATE/IPRATROPIU 3 ML SOL IH SCH ×2 (07:48→13:43)
[2018-08-14 08:00] VITALS: BP 150/74
[2018-08-14] MEDS: LACTOBACILLUS RHAMNOSUS GG 1 EACH CAP PO SCH (08:58)
[2018-08-14] MEDS: LOSARTAN 25 MG TAB PO SCH (08:58)
[2018-08-14] MEDS: AMIODARONE 200 MG TAB PO SCH (08:59)
[2018-08-14] MEDS: TAMSULOSIN 0.4 MG CAP PO SCH (08:59)
[2018-08-14] MEDS: CARVEDILOL 3.125 MG TAB PO SCH (08:59)
[2018-08-14] MEDS ORDERED: DOCUSATE SODIUM 100 MG GELCAP PO SCH (09:00)
--- NOTE | 2018-08-14 09:05 | NUR ---
PATIENT LYING DOWN IN BED COMFORTABLY. NO DISTRESS NOTED. DENIES ANY PAIN. SCHEDULED MEDICATIONS DUE GIVEN. WILL CONTINUE TO MONITOR.
[2018-08-14] MEDS ORDERED: DEXT5SYR3 PO (10:24)
[2018-08-14] MEDS ORDERED: DOCU-299 PO (10:24)
[2018-08-14] MEDS ORDERED: HUMSLIDE SUBQ (10:24)
[2018-08-14] MEDS ORDERED: ACET-1182 PO (10:24)
[2018-08-14] MEDS ORDERED: LACT10CA PO (10:24)
[2018-08-14] MEDS ORDERED: GLUC-805 FS (10:24)
[2018-08-14] MEDS ORDERED: D50SYR IVP (10:24)
[2018-08-14] MEDS ORDERED: ALBU3SOL83 IH (10:24)
[2018-08-14] MEDS ORDERED: ROC2I IJ (10:38)
[2018-08-14] MEDS ORDERED: CEFT1SOL1 IV (10:45)
[2018-08-14] MEDS ORDERED: AZIT500P1 IV (10:46)
[2018-08-14] MEDS ORDERED: AZITHROMYCIN 500 MG in DEXTROSE 5% 250 ML IV SCH (11:00)
--- NOTE | 2018-08-14 11:07 | NUR ---
PHYSICAL THERAPISTS AT BEDSIDE WORKING WITH PATIENT. PATIENT WALKING AROUND [facility] HALLWAYS. WILL CONTINUE TO MONITOR WHEN PATIENT RETURNS TO BED.
--- NOTE | 2018-08-14 11:52 | NUR ---
REYNA POWER RECEIVED ORDER TO DC TO [place] FOR IV ANTIBIOTICS, PHYSICAL THERAPY, BREATHING TREATMENTS. FAXED THE ORDER AND UPDATED CLINICAL PACKET TO [facility]. PER DIEGO OF [facility] PH# [phone], THE PATIENT CAN GO TO [address] ENCARNACION TODAY. I SPOKE WITH ISELA OF [facility] PH# [phone] WHO SAID THAT THEY DON'T SERVICE THE [place] ARE[place]. I LEFT A VM TO [facility] GERALD PH# [phone] TO INFORM HER THAT [facility] DOESN'T GO TO [place]. SPOKE WITH TERRANCE OF [facility] PH# [phone] OPTION 1, 3, 3 WHO SAID THAT THEY HAVE A CONTRACT WITH [facility] AND NO AUTH NEEDED AND THAT SHE WILL ALSO INFORM THE ASSIGNED [facility]. PER JASBIR OF [facility] PH# [phone], THE PATIENT WILL BE PICKED UP AT [address] TIME TODAY TO GO TO [facility]. NANDO DOSS AWARE. Addendum: 08/14/18 at 1224 by Sandra Beverly CM ORDER TO DC TO [place] FOR IV ANTIBIOTICS, PHYSICAL THERAPY, BREATHING TREATMENTS FAXED TO [facility], ATTN : REYNA DUARTE.
[2018-08-14 12:00] VITALS: BP 147/86
--- NOTE | 2018-08-14 12:09 | NUR ---
PATIENT SITTING IN BED WATCHING TV. NO DISTRESS NOTED. DENIES ANY PAIN. SCHEDULED MEDICATIONS DUE GIVEN. WILL CONTINUE TO MONITOR.
--- NOTE | 2018-08-14 14:05 | NUR ---
DISCHARGE INSTRUCTIONS PROVIDED TO PATIENT IN PREFERRED LANGUAGE OF KHMER. FOLLOW-UP WITH MD AT [facility], NEW/CHANGED MEDICATION REGIMEN, DIET REGIMEN, AND DISEASE MANAGEMENT/PREVENTION OF UTI AND PNA. ANSWERED ALL OF PATIENT'S QUESTIONS REGARDING TRANSFER. PATIENT VERBALIZED COMPLETE UNDERSTANDING. AWAITING FOR [facility] TO ARRIVE AT [address] [facility]. CALLED , REY AND NOTIFIED HER OF PATIENT'S TRANSFER TO [place] AT 1500. REY VERBALIZED COMPLETE UNDERSTANDING. WILL CONTINUE TO MONITOR.
--- NOTE | 2018-08-14 14:40 | NUR ---
CALLED [facility] AND GAVE REPORT TO ROMARIO ORTIZ REGARDING PATIENT. ANSWERED ALL OF DIANA QUESTIONS REGARDING TRANSFER. NOTIFIED HER OF [facility] ARRIVING AT 1500 QUICK TECHNICIAN TIME. [facility] TO AWAIT FOR PATIENT'S ARRIVAL. WILL CONTINUE TO MONITOR.
--- NOTE | 2018-08-14 15:35 | NUR ---
[facility] ON UNIT TO TAKE PATIENT TO [facility]. PATIENT ALREADY DRESSED AND READY TO GO. ABLE TO AMBULATE TO [facility]. PATIENT TRANSFERRED TO [facility] AT THIS TIME IN STABLE CONDITION.
== END 2018-08-14 15:35 | DRG 871 ==
LOC: MED 23:31 → MIC 08-10 03:14 → MTU 08-11 14:50
PROVIDERS: ADMIT General Practice; ATTEND General Practice
PROC: 5A09357 Assistance with Respiratory Ventilation, Less than 24 Consecutive Hours, Continuous Positive Airway Pressure (ICD-10-PCS; 2018-08-10)
PROC: 3E02340 Introduction of Influenza Vaccine into Muscle, Percutaneous Approach (ICD-10-PCS; principal; 2018-08-11)
PROC: 3E0234Z Introduction of Serum, Toxoid and Vaccine into Muscle, Percutaneous Approach (ICD-10-PCS; 2018-08-11)
DX: A41.9 Sepsis, unspecified organism (principal); J69.0 Pneumonitis due to inhalation of food and vomit; N17.0 Acute kidney failure with tubular necrosis; J96.01 Acute respiratory failure with hypoxia; N39.0 Urinary tract infection, site not specified; J45.901 Unspecified asthma with (acute) exacerbation; E87.6 Hypokalemia; E11.9 Type 2 diabetes mellitus without complications; I11.0 Hypertensive heart disease with heart failure; I25.10 Atherosclerotic heart disease of native coronary artery without angina pectoris; I48.91 Unspecified atrial fibrillation; J44.9 Chronic obstructive pulmonary disease, unspecified; N40.0 Benign prostatic hyperplasia without lower urinary tract symptoms; M47.816 Spondylosis without myelopathy or radiculopathy, lumbar region; N28.1 Cyst of kidney, acquired; I49.5 Sick sinus syndrome; B96.20 Unspecified Escherichia coli [E. coli] as the cause of diseases classified elsewhere; Z16.12 Extended spectrum beta lactamase (ESBL) resistance; Z87.891 Personal history of nicotine dependence; Z95.0 Presence of cardiac pacemaker; Z95.1 Presence of aortocoronary bypass graft; Z95.5 Presence of coronary angioplasty implant and graft; Z79.82 Long term (current) use of aspirin; Z79.84 Long term (current) use of oral hypoglycemic drugs; Z79.899 Other long term (current) drug therapy; Z83.3 Family history of diabetes mellitus; Z82.49 Family history of ischemic heart disease and other diseases of the circulatory system; Z23 Encounter for immunization; I50.9 Heart failure, unspecified; K76.89 Other specified diseases of liver
CPT/HCPCS: 36415; 36600; 71045; 76770; 80048; 80053; 80305; 81001; 82150; 82550; 82803; 82948; 83036; 83605; 83690; 83735; 83880; 84100; 84439; 84443; 84484; 85025; 85610; 85730; 87040; 87070; 87081; 87086; 87186; 87205; 87804; 90732; 93005; 94640; 94660; 96365; 96375; 97110; 97116; 97530; 99285; J0360; J0456; J0696; J1815; J1940; J1956; J2185; J2920; J2930; J3480; J3490; J7030; J7060; J7620; Q0092

== ENCOUNTER 2022-09-20 10:55 | Inpatient (IN) | payer OTHER, MEDICAID ==
[~2022-09-20] VITALS: Ht 170.2 cm; Wt 77.1 kg
[~2022-09-20 10:55] MED LIST: ACET-1182 PO; ALBU3SOL83 IH; AMIO200T70 PO; AZIT500P1 IV; CARV3.12 PO; CEFT1SOL1 IV; D50SYR IVP; DEXT5SYR3 PO; DOCU-299 PO; GLUC-805 FS; HUMSLIDE SUBQ; LACT10CA PO; LOSA25TA43 PO; TAMS0.4C96 PO
--- NOTE | 2022-09-20 11:03 | NUR ---
PT W/C ASSISTED TO ER BED 2
[2022-09-20 11:22] VITALS: BP 142/76
--- NOTE | 2022-09-20 12:23 | NUR ---
RAD AT BEDSIDE. ALLA WALKER SAMPLE COLLECTED AND HANDED TO POPULATION GENETICIST
[2022-09-20 12:33] LABS: BASOPHILS % (AUTO) 0.2 % (0.0-2.0); EOSINOPHILS # (AUTO) 0.1 K/uL (0-0.4); EOSINOPHILS % (AUTO) 0.7 % (0.0-4.0); HEMATOCRIT 41.2 % (36-52); HEMOGLOBIN 13.7 g/dL (12.0-18.0); LYMPHOCYTES # (AUTO) 1.3 K/uL (2.0-11.5); LYMPHOCYTES % (AUTO) 10.1 % (20.5-51.1); MEAN CORPUSCULAR HEMOGLOBIN 29 pg (27-31); MEAN CORPUSCULAR HGB CONC 33 g/dL (33-37); MEAN CORPUSCULAR VOLUME 85.7 fL (80-94); MONOCYTES # (AUTO) 0.6 K/uL (0.8-1.0); MONOCYTES % (AUTO) 4.6 % (1.7-9.3); NEUTROPHILS # (AUTO) 10.4 K/uL (1.8-7.7); NEUTROPHILS % (AUTO) 84.4 % (42.2-75.2); PLATELET COUNT (AUTO) 164 K/uL (140-450); WHITE BLOOD COUNT (AUTO) 12.4 K/uL (4.8-10.8)
[2022-09-20 13:10] LABS: ALBUMIN 3.8 g/dL (3.4-5.0); ANION GAP 13.8 (8-16); ASPARTATE AMINOTRANSFERASE 17 U/L (15-37); CARBON DIOXIDE 22.5 mmol/L (21-32); CHLORIDE 101 mmol/L (98-107); CREATININE 1.5 mg/dL (0.6-1.3); GLUCOSE 166 mg/dL (74-106); POTASSIUM 4.3 mmol/L (3.5-5.1); SODIUM SERUM 133 mmol/L (136-145); TOTAL BILIRUBIN 0.7 mg/dL (0.0-1.0); UREA NITROGEN, BLOOD 47 mg/dL (7-18)
[2022-09-20] MEDS ORDERED: SIMV-30 PO (13:48)
[2022-09-20] MEDS ORDERED: AMIO100T3 PO (13:48)
[2022-09-20] MEDS ORDERED: APIX5TAB PO (13:48)
[2022-09-20] MEDS ORDERED: LEVO0.0211 PO (13:48)
[2022-09-20] MEDS ORDERED: SPIR25TA20 PO (13:48)
[2022-09-20] MEDS ORDERED: [UNRECOGNIZED DRUG - CODE] PO (13:48)
--- NOTE | 2022-09-20 14:15 | NUR ---
awake alert x 4, very cooperative. marked weakness on l side of body post cva, gets PT outpatient. no further emesis while in the ED.
[2022-09-20] MEDS ORDERED: MORPHINE SULFATE 2 MG/ML SYR IVP PRN (15:35)
[2022-09-20] MEDS ORDERED: ACETAMINOPHEN 325 MG TAB PO PRN (15:35)
[2022-09-20] MEDS ORDERED: ONDANSETRON 4 MG/2 ML VIAL IVP PRN (15:35)
[2022-09-20] MEDS: DEXT 5% /NACL 0.9% 1,000 ML IV SCH (15:35)
[2022-09-20] MEDS: PANTOPRAZOLE 80 MG in NACL 0.9% 100 ML IVP SCH (15:40)
--- NOTE | 2022-09-20 17:00 | NUR ---
Patient will be admitted to care of Dr Null. Admited to Tele. Will go to room 108A. Belongings list completed. Report to Rogelio.
[2022-09-20] MEDS ORDERED: DEXTROSE 50% 50 ML SYR IVP PRN (17:30)
[2022-09-20] MEDS ORDERED: ALBUTEROL SULFATE/IPRATROPIU 3 ML SOL IH PRN (17:30)
--- NOTE | 2022-09-20 17:30 | NUR ---
pt arrived in the unit , got report from the ER nurse, assessment is done and reoriented pt to the hospital room, at bedside, v,s obtained and BS is 125, admitted pt . pt stable on tele monitor.[email or web address]
[2022-09-20 17:56] VITALS: BP 102/61
--- NOTE | 2022-09-20 19:37 | NUR ---
gave report the night nurse pt stable. [email or web address]
--- NOTE | 2022-09-20 19:38 | NUR ---
RECEIVED REPORT FROM DAY NURSE. PATIENT AWAKE ALERT ORIENTED WELL RESTED ON ROOM AIR. NO SOB NOTED. NO COMPLAINTS OF PAIN AT THIS TIME. CALL LIGHT WITHIN REACH. SAFETY PRECAUTIONS ARE IN PLACE. NEEDS ATTENDED TO.
[2022-09-20 20:00] VITALS: BP 108/65
[2022-09-20] MEDS: BLOOD GLUCOSE MONITORING 1 DEV DEV FS SCH (20:31)
[2022-09-20] MEDS: carvediloL 3.125 MG TAB PO SCH (21:51)
--- NOTE | 2022-09-20 21:51 | NUR ---
ADMINISTERED SCHEDULED MEDICATION.
--- NOTE | 2022-09-20 23:04 | NUR ---
CALLED TP BEDSIDE BY RN FOR SOB. ASSESSMENT: SPO2 97%, HR 89, RR 18, BREATH SOUNDS RALES. NO WHEEZING. NO SIGNS OF INCREASE WORK OF BREATHING AT THIS TIME. PT STATES "I TAKES PUFFS IN THE HOUSE". PT STATES HE HAS NO SOB/DIFFICULT BREATHING AT THIS TIME. PT WAS INFORMED TO CALL WHEN EXPERIENCING SOB.
[2022-09-21] VITALS: BP 124/76
[2022-09-21] MEDS: PANTOPRAZOLE 80 MG in NACL 0.9% 100 ML IVP SCH ×2 (01:40→04:29)
[2022-09-21 04:00] VITALS: BP 103/62
[2022-09-21] MEDS ORDERED: PANTOPRAZOLE 40 MG INJ VIAL ONE (04:20)
[2022-09-21] MEDS: DEXT 5% /NACL 0.9% 1,000 ML IV SCH ×2 (04:55→10:13)
[2022-09-21] MEDS: LEVOTHYROXINE 0.025 MG TAB PO SCH (06:00)
[2022-09-21 06:50] LABS: BASOPHILS % (AUTO) 0.2 % (0.0-2.0); EOSINOPHILS % (AUTO) 0.3 % (0.0-4.0); HEMATOCRIT 33.7 % (36-52); HEMOGLOBIN 11.3 g/dL (12.0-18.0); LYMPHOCYTES # (AUTO) 1.6 K/uL (2.0-11.5); LYMPHOCYTES % (AUTO) 10.4 % (20.5-51.1); MEAN CORPUSCULAR HEMOGLOBIN 29 pg (27-31); MEAN CORPUSCULAR HGB CONC 33 g/dL (33-37); MEAN CORPUSCULAR VOLUME 85.3 fL (80-94); MONOCYTES # (AUTO) 1.1 K/uL (0.8-1.0); MONOCYTES % (AUTO) 7.3 % (1.7-9.3); NEUTROPHILS # (AUTO) 12.3 K/uL (1.8-7.7); NEUTROPHILS % (AUTO) 81.8 % (42.2-75.2); PLATELET COUNT (AUTO) 165 K/uL (140-450); RED BLOOD CELL COUNT(AUTO) 3.95 MIL/uL (4.20-6.10); RED CELL DISTRIBUTION WIDTH 14.1 % (11.6-13.7)
--- NOTE | 2022-09-21 07:25 | NUR ---
ALL NEEDS MET THROUGHOUT THE SHIFT. ENDORSED TO MORNING NURSE FOR CONTINUITY OF CARE.
[2022-09-21 07:30] LABS: ALBUMIN 3.1 g/dL (3.4-5.0); ANION GAP 12.7 (8-16); ASPARTATE AMINOTRANSFERASE 13 U/L (15-37); CARBON DIOXIDE 22.3 mmol/L (21-32); CHLORIDE 108 mmol/L (98-107); CREATININE 1.4 mg/dL (0.6-1.3); GLUCOSE 173 mg/dL (74-106); MAGNESIUM 1.8 mg/dL (1.8-2.4); SODIUM SERUM 139 mmol/L (136-145); TOTAL BILIRUBIN 0.5 mg/dL (0.0-1.0); UREA NITROGEN, BLOOD 55 mg/dL (7-18)
--- NOTE | 2022-09-21 07:30 | NUR ---
RECEIVED REPORT FROM BEAN PICKER NURSE. POC DISCUSSED. PT CURRENTLY RESTING WITH CHEST RISING AND FALLING. NO ACUTE S/S OF DISTRESS. ALL SAFETY MEASURES IN PLACE. CALL LIGHT WITHIN REACH.
[2022-09-21 08:00] VITALS: BP 103/58
[2022-09-21] MEDS ORDERED: TAMSULOSIN 0.4 MG CAP PO SCH (08:30)
--- NOTE | 2022-09-21 08:56 | NUR ---
PATIENT HAS BEEN SCREENED AND CATEGORIZED MODERATE NUTRITION RISK. PATIENT WILL BE SEEN WITHIN 3-5 DAYS OF ADMISSION. 09/23/ REVIEWED BY [facility]
[2022-09-21] MEDS: BLOOD GLUCOSE MONITORING 1 DEV DEV FS SCH ×4 (09:00→20:40)
[2022-09-21] MEDS: carvediloL 3.125 MG TAB PO SCH (09:00)
[2022-09-21] MEDS ORDERED: LOSARTAN 25 MG TAB PO SCH (09:00)
--- NOTE | 2022-09-21 09:55 | NUR ---
MD NOTIFIED OF PTS BLOOD PRESSURE BEING HYPOTENSIVE, 103/58 THEN 109/65 HEART RATE 83. MD STATED TO HOLD BP MEDICATION, PT ABLE TO SWALLOW OTHER MEDICATION. IV PATENT AND INTACT. ALL NEEDS BEING MET
[2022-09-21] MEDS: AMIODARONE 200 MG TAB PO SCH (10:16)
--- NOTE | 2022-09-21 11:56 | NUR ---
DC PLANNING A 76 YEAR OLD MALE PATIENT ADMITTED FOR GI BLEED WITH COMPLAINTS OF HEMATEMESIS AND BLACK STOOLS.ON IV PROTONIX.HGB STABLE.LATEST .3.GI CX REQUESTED.DC PLAN-HOME WHEN PATIENT RESPONDS TO TX.CM TO FOLLOW.
[2022-09-21 12:00] VITALS: BP 95/53
[2022-09-21 12:29] LABS: BASOPHILS # (AUTO) 0.1 K/uL (0.00-0.22); BASOPHILS % (AUTO) 0.5 % (0.0-2.0); EOSINOPHILS # (AUTO) 0.1 K/uL (0-0.4); EOSINOPHILS % (AUTO) 0.5 % (0.0-4.0); HEMATOCRIT 30.7 % (36-52); HEMOGLOBIN 10.5 g/dL (12.0-18.0); LYMPHOCYTES # (AUTO) 1.7 K/uL (2.0-11.5); LYMPHOCYTES % (AUTO) 14.4 % (20.5-51.1); MEAN CORPUSCULAR HEMOGLOBIN 29 pg (27-31); MEAN CORPUSCULAR HGB CONC 34 g/dL (33-37); MEAN CORPUSCULAR VOLUME 85.2 fL (80-94); MONOCYTES # (AUTO) 0.9 K/uL (0.8-1.0); MONOCYTES % (AUTO) 7.3 % (1.7-9.3); NEUTROPHILS # (AUTO) 9.2 K/uL (1.8-7.7); NEUTROPHILS % (AUTO) 77.3 % (42.2-75.2); PLATELET COUNT (AUTO) 138 K/uL (140-450); RED BLOOD CELL COUNT(AUTO) 3.61 MIL/uL (4.20-6.10); RED CELL DISTRIBUTION WIDTH 14.6 % (11.6-13.7); WHITE BLOOD COUNT (AUTO) 11.8 K/uL (4.8-10.8)
--- NOTE | 2022-09-21 12:42 | NUR ---
REASSESSED BLOOD PRESSURE, 93/58, HEART RATE 80. IN NURSING STATION, NOTIFIED HIM. MD STATED TO CONTINUE TO HOLD ALL BLOOD PRESSURE MEDICATION.
--- NOTE | 2022-09-21 13:00 | NUR ---
PT BLOOD SUGAR 163, INSULIN HELD DUE TO PTS NPO STATUS
--- NOTE | 2022-09-21 13:24 | NUR ---
GI LAB CALLED ASKING IF CONSENT IS SIGNED. DR MCDONOUGH HAS YET TO COME EXPLAIN PROCEDURE TO PT AND SIGN WITH MD. DR MCDONOUGH NOTIFIED OF PENDING CONSENT.
[2022-09-21] MEDS ORDERED: fentaNYL citrate 0.05 MG/ML VIAL ONE (15:17)
[2022-09-21] MEDS ORDERED: MIDAZOLAM 5 MG/5 ML VIAL ONE (15:18)
--- NOTE | 2022-09-21 15:20 | NUR ---
PT TAKEN TO GI LAB IN STABLE CONDITION
[2022-09-21 16:00] VITALS: BP 103/59
[2022-09-21] MEDS ORDERED: NACL 0.9% 500 ML IV SCH (16:50)
--- NOTE | 2022-09-21 16:50 | NUR ---
MD NOTIFIED OF DECREASED BLOOD PRESSURE, 500CC BOLUS ORDERED AND FOLLOWED THROUGH
[2022-09-21] MEDS: INSULIN LISPRO SLIDING SCALE 100 UNITS/ML VIAL SUBQ PRN ×2 (17:03→20:41)
--- NOTE | 2022-09-21 17:15 | NUR ---
PT WAS BROUGHT BACK FROM GI DEPARTMENT IN STABLE CONDITION, A&OX4. RECONNECTED TO FLUIDS, TORB FROM DR MCDONOUGH. POST OP VITAL SIGNS STARTED. NO ACUTE S/S OF DISTRESS, ALL SAFETY MEASURES IN PLACE, CALL LIGHT WITHIN REACH. AT BEDSIDE. Addendum: 09/21/22 at 1839 by Agency 10 RN RN WRONG ENTRY TIME; 1615 PT WAS BROUGHT BACK IN STABLE CONDITION.
[2022-09-21 17:36] LABS: BASOPHILS % (AUTO) 0.3 % (0.0-2.0); EOSINOPHILS # (AUTO) 0.1 K/uL (0-0.4); EOSINOPHILS % (AUTO) 0.8 % (0.0-4.0); HEMOGLOBIN 9.2 g/dL (12.0-18.0); LYMPHOCYTES # (AUTO) 1.4 K/uL (2.0-11.5); LYMPHOCYTES % (AUTO) 15.8 % (20.5-51.1); MEAN CORPUSCULAR HEMOGLOBIN 29 pg (27-31); MEAN CORPUSCULAR HGB CONC 34 g/dL (33-37); MEAN CORPUSCULAR VOLUME 85.6 fL (80-94); MONOCYTES # (AUTO) 0.6 K/uL (0.8-1.0); MONOCYTES % (AUTO) 7.2 % (1.7-9.3); NEUTROPHILS # (AUTO) 6.8 K/uL (1.8-7.7); NEUTROPHILS % (AUTO) 75.9 % (42.2-75.2); PLATELET COUNT (AUTO) 123 K/uL (140-450); RED BLOOD CELL COUNT(AUTO) 3.15 MIL/uL (4.20-6.10); RED CELL DISTRIBUTION WIDTH 14.2 % (11.6-13.7); WHITE BLOOD COUNT (AUTO) 8.9 K/uL (4.8-10.8)
--- NOTE | 2022-09-21 18:00 | NUR ---
POST OP VSS, FORM PLACED IN PT CHART
--- NOTE | 2022-09-21 18:40 | NUR ---
PT SITTING UP IN BED WITH NO ACUTE S/S OF DISTRESS, REPORTS ALL NEEDS ARE BEING MET. IV FLUIDS RUNNING, IV PATENT. CALL LIGHT WITHIN REACH. PT ABLE TO MAKE NEEDS KNOWN. ALL SAFETY MEASURES IN PLACE
--- NOTE | 2022-09-21 19:49 | NUR ---
PATIENT LYING IN BED WITH HEAD ELEVATED. NO S/S OF RESPIRATORY DISTRESS. ON ROOM AIR. DENIES PAIN. IVF D5 NS INFUSING ORDERED. CALL LIGHT WITHIN REACH. SAFETY MEASURES IN PLACE. ATTENDED TO HIS NEEDS.
[2022-09-21 20:00] VITALS: BP 110/52
--- NOTE | 2022-09-21 20:40 | NUR ---
BLOOD SUGAR CHECKED 163, ADMINISTERED HUMALOG INSULIN ORDERED PER SLIDING SCALE.
[2022-09-22] VITALS: BP 105/46
--- NOTE | 2022-09-22 | NUR ---
PATIENT REFUSED MIDNIGHT BLOOD DRAW.
[2022-09-22 04:00] VITALS: BP 102/40
[2022-09-22 06:14] LABS: BASOPHILS % (AUTO) 0.5 % (0.0-2.0); EOSINOPHILS # (AUTO) 0.2 K/uL (0-0.4); EOSINOPHILS % (AUTO) 2.1 % (0.0-4.0); HEMOGLOBIN 8.4 g/dL (12.0-18.0); LYMPHOCYTES # (AUTO) 1.4 K/uL (2.0-11.5); LYMPHOCYTES % (AUTO) 17.8 % (20.5-51.1); MEAN CORPUSCULAR HEMOGLOBIN 29 pg (27-31); MEAN CORPUSCULAR HGB CONC 34 g/dL (33-37); MEAN CORPUSCULAR VOLUME 85.6 fL (80-94); MONOCYTES # (AUTO) 0.6 K/uL (0.8-1.0); MONOCYTES % (AUTO) 7.8 % (1.7-9.3); NEUTROPHILS # (AUTO) 5.8 K/uL (1.8-7.7); NEUTROPHILS % (AUTO) 71.8 % (42.2-75.2); PLATELET COUNT (AUTO) 127 K/uL (140-450); RED BLOOD CELL COUNT(AUTO) 2.93 MIL/uL (4.20-6.10); RED CELL DISTRIBUTION WIDTH 14.3 % (11.6-13.7); WHITE BLOOD COUNT (AUTO) 8.1 K/uL (4.8-10.8)
[2022-09-22] MEDS: LEVOTHYROXINE 0.025 MG TAB PO SCH (06:21)
[2022-09-22 06:43] LABS: ALBUMIN 2.8 g/dL (3.4-5.0); ANION GAP 10.2 (8-16); ASPARTATE AMINOTRANSFERASE 16 U/L (15-37); CHLORIDE 113 mmol/L (98-107); CREATININE 1.3 mg/dL (0.6-1.3); GLUCOSE 131 mg/dL (74-106); POTASSIUM 4.2 mmol/L (3.5-5.1); SODIUM SERUM 143 mmol/L (136-145); TOTAL BILIRUBIN 0.4 mg/dL (0.0-1.0); UREA NITROGEN, BLOOD 32 mg/dL (7-18)
--- NOTE | 2022-09-22 07:11 | NUR ---
GAVE REPORT TO AM NURSE FOR CONTINUITY OF CARE.
--- NOTE | 2022-09-22 07:12 | NUR ---
RECEIVED UPDATE FROM SMALL ELECTRIC ENGINE TECHNICIAN NURSE, ALL NIGHT EVENTS DISCUSSED. PT IS LAYING IN BED ON ROOM AIR AWAKE WITH CHEST RISING AND FALLING EVEN AND UNLABORED. NO ACUTE S/S OF DISTRESS. PT REPORTS ALL NEEDS MET, CALL LIGHT WITHIN REACH.
--- NOTE | 2022-09-22 07:30 | NUR ---
RECEIVED REPORT FROM SHIPMASTER NURSE. POC DISCUSSED. PT CURRENTLY RESTING WITH CHEST RISING AND FALLING. NO ACUTE S/S OF DISTRESS. ALL SAFETY MEASURES IN PLACE. CALL LIGHT WITHIN REACH.
[2022-09-22] MEDS: DEXT 5% /NACL 0.9% 1,000 ML IV SCH (07:34)
[2022-09-22 08:00] VITALS: BP 101/48
[2022-09-22] MEDS: BLOOD GLUCOSE MONITORING 1 DEV DEV FS SCH ×4 (09:07→20:38)
[2022-09-22] MEDS: PANTOPRAZOLE 40 MG TABEC PO SCH (09:11)
[2022-09-22] MEDS: AMIODARONE 200 MG TAB PO SCH (09:11)
--- NOTE | 2022-09-22 09:38 | NUR ---
ALL ACH MEDICATION ADMINISTERED PER MD ORDER, AMIODARONE DROPPED, WAS DISCARDED AND NEW ONE PULLED. DESK PENS ASSEMBLER IN MED ROOM NOTIFIED.
[2022-09-22] MEDS ORDERED: NACL 0.9% 500 ML IV ONE (11:30)
[2022-09-22 12:00] VITALS: BP 106/53
[2022-09-22 12:49] LABS: BASOPHILS % (AUTO) 0.5 % (0.0-2.0); EOSINOPHILS # (AUTO) 0.2 K/uL (0-0.4); EOSINOPHILS % (AUTO) 2.3 % (0.0-4.0); HEMATOCRIT 22.4 % (36-52); HEMOGLOBIN 7.7 g/dL (12.0-18.0); LYMPHOCYTES # (AUTO) 1.5 K/uL (2.0-11.5); LYMPHOCYTES % (AUTO) 20.4 % (20.5-51.1); MEAN CORPUSCULAR HEMOGLOBIN 29 pg (27-31); MEAN CORPUSCULAR HGB CONC 34 g/dL (33-37); MEAN CORPUSCULAR VOLUME 85.6 fL (80-94); MONOCYTES # (AUTO) 0.5 K/uL (0.8-1.0); MONOCYTES % (AUTO) 6.5 % (1.7-9.3); NEUTROPHILS # (AUTO) 5.2 K/uL (1.8-7.7); NEUTROPHILS % (AUTO) 70.3 % (42.2-75.2); PLATELET COUNT (AUTO) 112 K/uL (140-450); RED BLOOD CELL COUNT(AUTO) 2.62 MIL/uL (4.20-6.10); RED CELL DISTRIBUTION WIDTH 14.5 % (11.6-13.7); WHITE BLOOD COUNT (AUTO) 7.4 K/uL (4.8-10.8)
--- NOTE | 2022-09-22 13:33 | NUR ---
PTS CALLED, UPDATED PROVIDED. ALL QUESTIONS ANSWERED.
[2022-09-22 16:00] VITALS: BP 105/53
[2022-09-22] MEDS: NACL 0.9% 500 ML IV SCH ×2 (17:46→23:15)
--- NOTE | 2022-09-22 19:10 | NUR ---
RECEIVED PATIENT LYING ON THE BED, PATIENT IS AWAKE, ALERT AND ORIENTED X3, IN NO ACUTE DISTRESS, DENIES PAIN UPON ASSESSMENT, IV ACCESS SITE ON LEFT FOREARM G 20, INTACT AND PATENT, CALL LIGHT WITHIN REACH. ALL SAFETY MEASURES IN PLACE.
[2022-09-22 20:00] VITALS: BP 113/68
--- NOTE | 2022-09-22 20:30 | NUR ---
PATIENT'S BLOOD SUGAR IS 106 MG/DL, NO INSULIN COVERAGE NEEDED. ALL SAFETY MEASURES IN PLACE.
[2022-09-23] VITALS: BP 103/55
[2022-09-23 04:00] VITALS: BP 95/51
[2022-09-23] MEDS: LEVOTHYROXINE 0.025 MG TAB PO SCH (05:39)
[2022-09-23] MEDS: NACL 0.9% 500 ML IV SCH (05:42)
[2022-09-23 06:16] LABS: BASOPHILS % (AUTO) 0.5 % (0.0-2.0); EOSINOPHILS # (AUTO) 0.2 K/uL (0-0.4); EOSINOPHILS % (AUTO) 2.6 % (0.0-4.0); HEMATOCRIT 22.6 % (36-52); HEMOGLOBIN 7.7 g/dL (12.0-18.0); LYMPHOCYTES # (AUTO) 1.6 K/uL (2.0-11.5); MEAN CORPUSCULAR HEMOGLOBIN 29 pg (27-31); MEAN CORPUSCULAR HGB CONC 34 g/dL (33-37); MEAN CORPUSCULAR VOLUME 85.2 fL (80-94); MONOCYTES # (AUTO) 0.4 K/uL (0.8-1.0); MONOCYTES % (AUTO) 6.2 % (1.7-9.3); NEUTROPHILS # (AUTO) 4.9 K/uL (1.8-7.7); NEUTROPHILS % (AUTO) 68.7 % (42.2-75.2); PLATELET COUNT (AUTO) 125 K/uL (140-450); RED BLOOD CELL COUNT(AUTO) 2.65 MIL/uL (4.20-6.10); RED CELL DISTRIBUTION WIDTH 14.1 % (11.6-13.7); WHITE BLOOD COUNT (AUTO) 7.1 K/uL (4.8-10.8)
[2022-09-23 07:10] LABS: ANION GAP 9.5 (8-16); CARBON DIOXIDE 24.6 mmol/L (21-32); CHLORIDE 113 mmol/L (98-107); GLUCOSE 92 mg/dL (74-106); POTASSIUM 4.1 mmol/L (3.5-5.1); SODIUM SERUM 143 mmol/L (136-145)
--- NOTE | 2022-09-23 07:22 | NUR ---
ENDORSED PATIENT TO DAY NURSE FOR CONTINUITY OF CARE. PATIENT IN STABLE CONDITION.
--- NOTE | 2022-09-23 07:34 | NUR ---
GOT REPORT FROM THE NIGHT NURSE, PT IS SLEEPING, NO SOB [id number]
[2022-09-23 07:48] LABS: CREATININE 0.5 mg/dL (0.6-1.3); UREA NITROGEN, BLOOD 17 mg/dL (7-18)
[2022-09-23 08:00] VITALS: BP 106/54
[2022-09-23] MEDS: PANTOPRAZOLE 40 MG TABEC PO SCH (08:35)
[2022-09-23] MEDS: BLOOD GLUCOSE MONITORING 1 DEV DEV FS SCH ×3 (09:54→17:00)
[2022-09-23 12:00] VITALS: BP 106/52
--- NOTE | 2022-09-23 12:00 | NUR ---
pt given Tylenol for the temperature 100.5 as ordered.[email or web address]
[2022-09-23 16:00] VITALS: BP 109/57
[2022-09-23] MEDS ORDERED: PANT40EC56 PO (16:38)
[2022-09-23] MEDS ORDERED: FERROUS GLUCONATE 324 MG TAB PO SCH (17:00)
[2022-09-23 17:30] VITALS: BP 109/57
--- NOTE | 2022-09-23 18:40 | NUR ---
PT IS DISCHARGED HOME, DISCHARGE INSTRUCTION GIVEN,IV AND ID BAND REMOVED.PT IS ESCORTED TO THE CAR WITHOUT ANY DISCOMFORT.[id number]
== END 2022-09-23 18:38 | disposition home or self-care (01) | DRG 368 ==
LOC: MED 10:55 → MTU 15:40
PROVIDERS: ADMIT Internal Medicine; ATTEND Internal Medicine
PROC: 0W3P8ZZ Control Bleeding in Gastrointestinal Tract, Via Natural or Artificial Opening Endoscopic (ICD-10-PCS; principal; 2022-09-21 15:00)
DX: K22.6 Gastro-esophageal laceration-hemorrhage syndrome (principal); N17.0 Acute kidney failure with tubular necrosis; D62 Acute posthemorrhagic anemia; E87.1 Hypo-osmolality and hyponatremia; I69.354 Hemiplegia and hemiparesis following cerebral infarction affecting left non-dominant side; I95.2 Hypotension due to drugs; J44.9 Chronic obstructive pulmonary disease, unspecified; I25.10 Atherosclerotic heart disease of native coronary artery without angina pectoris; I48.91 Unspecified atrial fibrillation; K59.09 Other constipation; I12.9 Hypertensive chronic kidney disease with stage 1 through stage 4 chronic kidney disease, or unspecified chronic kidney disease; E11.22 Type 2 diabetes mellitus with diabetic chronic kidney disease; N18.9 Chronic kidney disease, unspecified; Z20.822 Contact with and (suspected) exposure to COVID-19; Z95.1 Presence of aortocoronary bypass graft; Z95.0 Presence of cardiac pacemaker; Z79.01 Long term (current) use of anticoagulants; Z83.3 Family history of diabetes mellitus; Z82.49 Family history of ischemic heart disease and other diseases of the circulatory system; Z79.4 Long term (current) use of insulin
CPT/HCPCS: 36415; 71045; 80048; 80053; 82948; 83735; 84484; 85025; 86886; 86900; 86901; 87081; 93005; 99291; 99292; C9113; J1815; J2250; J3010; Q0092